=== PATIENT | female | born 1990 | race Caucasian/White ===

== ENCOUNTER 2024-10-12 04:18 | Inpatient (IN) | payer OTHER ==
[2024-10-12] VITALS (9 sets, daily range): BP systolic 117–146; BP diastolic 73–89; PULSE 94–124; RESP 16–26; TEMP 36.3–36.5; O2SAT 84–96
[~2024-10-12] VITALS: Ht 149.9 cm; Wt 86.2 kg
[2024-10-12] MEDS: SODIUM CHLORIDE 0.9% 1,000 ML IV ONE (05:09)
[2024-10-12 05:16] LABS: BASOPHILS % 0.4 % (0.0-2.0); EOSINOPHILS % 2.6 % (0.0-5.0); HEMATOCRIT. 38.7 % (36.0-48.0); HEMOGLOBIN. 13.3 g/dL (12.0-16.0); LYMPHOCYTES % 39.3 % (20.0-50.0); MEAN CORPUSCULAR HEMOGLOBIN 30.9 pg (28.0-32.0); MEAN CORPUSCULAR HGB CONC 34.4 g/dL (31.0-37.0); MEAN PLATELET VOLUME 8.7 fl (7.4-10.4); MONOCYTES % 5.7 % (2.0-8.0); PLATELET 390 x1000/uL (130-400); RED CELL DISTRIBUTION WIDTH 12.6 % (11.6-14.6); WHITE BLOOD COUNT 9.4 x1000/uL (4.5-11.0)
[2024-10-12 05:23] LABS: CHLORIDE 99 mEq/L (98-107); POTASSIUM 3.4 mEq/L (3.5-5.1); SODIUM 136 mEq/L (136-145)
[2024-10-12 05:24] LABS: CALCIUM 9.5 mg/dL (8.7-10.4); CARBON DIOXIDE 23 mEq/L (21-32)
[2024-10-12 05:29] LABS: CREATININE 0.7 mg/dL (0.6-1.0); ETHANOL BLOOD 146 mg/dL (<10); GLUCOSE 260 mg/dL (70-105); UREA NITROGEN BLOOD 15 mg/dL (9-23)
[2024-10-12 05:30] LABS: ACETAMINOPHEN < 2 ug/mL (10-30)
[2024-10-12 05:54] LABS: ALANINE AMINOTRANSFERASE 24 IU/L (10-49); ALBUMIN 4.4 g/dL (3.2-4.8); ASPARTATE AMINOTRANSFERASE 15 IU/L (<34); BILIRUBIN DIRECT < 0.1 mg/dL (<=3.0); BILIRUBIN TOTAL 0.3 mg/dL (0.1-1.0); PROTEIN TOTAL 7.5 g/dL (6.0-8.3)
[2024-10-12 05:58] LABS: HCG SCREEN NEGATIVE
[2024-10-12] MEDS: LORAZEPAM 1MG TABLET PO PRN (09:38)
[2024-10-12] MEDS: KETOROLAC 30MG/ML VIAL IV PRN (09:38)
[2024-10-12] MEDS ORDERED: DEXTROSE 50% WATER 50ML SYRINGE IV PRN (09:45)
[2024-10-12] MEDS: POTASSIUM CHLORIDE 20MEQ TABLET SR PO SCH (10:40)
[2024-10-12] MEDS: BLOOD SUGAR DIAGNOSTIC STRIP TEST SCH (12:30)
[2024-10-12] MEDS: FOLIC ACID 1 MG, THIAMINE HCL 100 MG, MVI, ADULT NO.1 10 ML in DEXTROSE 5% WATER 1,000 ML IV ONE (13:23)
[2024-10-12] MEDS: PANTOPRAZOLE 40MG DR TABLET PO SCH (14:38)
[2024-10-12] MEDS: CHLORDIAZEPOXIDE 25MG CAPSULE PO SCH (14:39)
[2024-10-12] MEDS: INSULIN LISPRO 100 UNITS/ML SUBCUT SCH (14:40)
[2024-10-12 17:25] LABS: CLARITY URINE CLEAR (CLEAR); COLOR URINE YELLOW (YELLOW); GLUCOSE URINE 3+ (NEGATIVE); KETONES URINE TRACE (NEGATIVE); LEUKOCYTE ESTERASE URINE NEGATIVE (NEGATIVE); NITRITE URINE NEGATIVE (NEGATIVE); OCCULT BLOOD URINE NEGATIVE (NEGATIVE); PH URINE 5.5 (4.5-8.0); PROTEIN URINE NEGATIVE (NEGATIVE); SPECIFIC GRAVITY URINE 1.026 (1.005-1.030); UROBILINOGEN URINE 0.2 E.U./dL (0.2-1.0)
[2024-10-12 17:36] LABS: *AMPHETAMINES SCREEN URINE PRESUMPTIVE POSITIVE (NEGATIVE); *BARBITURATES SCREEN URINE NEGATIVE (NEGATIVE); *BENZODIAZEPINES SCREEN URINE NEGATIVE (NEGATIVE); *COCAINE SCREEN URINE NEGATIVE (NEGATIVE); CANNABINOID URINE SCREEN PRESUMPTIVE POSITIVE (NEGATIVE); ECSTASY MDMA SCREEN URINE NEGATIVE (NEGATIVE); METHADONE URINE SCREEN NEGATIVE (NEGATIVE); OPIATES URINE SCREEN NEGATIVE (NEGATIVE); PHENCYCLIDINE URINE SCREEN NEGATIVE (NEGATIVE)
[2024-10-12 18:06] LABS: BACTERIA URINE 1+; RBC URINE 0-2 /hpf (0-2); SQUAMOUS EPITHELIAL CELL URINE 1+ /lpf (RARE/1+); WBC URINE 0-2 /hpf (0-2)
[2024-10-13] VITALS (9 sets, daily range): BP systolic 107–159; BP diastolic 67–106; PULSE 20–104; RESP 16–31; TEMP 36.3–36.6; O2SAT 92–99
[2024-10-13] MEDS ORDERED: INSU100I28 SQ (08:51)
[2024-10-13] MEDS ORDERED: SEMA0.258 SUBCUT (08:51)
[2024-10-13] MEDS ORDERED: LISI10TA26 MT (08:51)
== END 2024-10-13 17:12 | disposition home or self-care (01) | DRG 52 ==
LOC: ER 04:18 → 5EST 06:23 → EDBEDREQTM 06:26 → EDBEDREQ 06:26
PROVIDERS: ADMIT Internal Medicine; ATTEND Internal Medicine
DX: G92.9 Unspecified toxic encephalopathy (principal); E11.65 Type 2 diabetes mellitus with hyperglycemia; F10.129 Alcohol abuse with intoxication, unspecified; I10 Essential (primary) hypertension; E87.6 Hypokalemia; F12.90 Cannabis use, unspecified, uncomplicated; Y90.6 Blood alcohol level of 120-199 mg/100 ml; Z79.899 Other long term (current) drug therapy
CPT/HCPCS: 36415; 74176; 80048; 80076; 80305; 80307; 80320; 80329; 81003; 82962; 84703; 85025; 93005; 99291; A4606; J1815; J1885; J3411; J3490; J7030; J7070; G0480